=== PATIENT | female | born 1935 | race Two or more races ===

== ENCOUNTER 2016-12-11 13:39 | Inpatient (IN) | payer MEDICARE, OTHER ==
[~2016-12-11] VITALS: Ht 157.5 cm; Wt 46.1 kg
[~2016-12-11 13:39] MED LIST: ACET325T9 PO; ASPI-630 PO; CARV3.122 PO; CEFP100T PO; CEPH-264 PO; CIPR500T94 PO; CRAN1CAP12 PO; CYAN10005 PO; DIAZ10TA4 PO; FERR325T58 PO; FURO-69 PO; GABA-585 PO; GABA-586 PO; HYDR-971 PO; LIDO35.4 TP; LISI-338 PO; MIRA25TA PO; MUPI15CR TP; NITR0.4T22 SL; OXYC10TA PO; OXYC15TA PO; PHEN100T82 PO; SENN-79 PO; SIMV40TA3 PO; SULF1TAB24 PO
[2016-12-11 14:13] VITALS: BP 110/60
[2016-12-11] MEDS ORDERED: FENT1PAT21 TP (14:18)
[2016-12-11] MEDS ORDERED: ALPR1TAB6 PO (14:21)
[2016-12-11] MEDS ORDERED: POTA20TA4 PO (14:23)
[2016-12-11 14:24] VITALS: BP 110/60
[2016-12-11] MEDS ORDERED: GABA600T2 PO (14:24)
[2016-12-11] MEDS ORDERED: ACET500T68 PO (14:28)
[2016-12-11] MEDS ORDERED: DOCU100C28 PO (14:30)
[2016-12-11] MEDS ORDERED: MAGN2400 PO (14:31)
[2016-12-11] MEDS ORDERED: NITR0.4T SL (14:32)
[2016-12-11] MEDS ORDERED: POLY17PO5 PO (14:32)
[2016-12-11] MEDS ORDERED: KETO200C TOP (14:33)
[2016-12-11] MEDS ORDERED: NITROGLYCERIN SUBLINGUAL 0.4 MG BOTTLE OF 25. SL PRN (14:45)
[2016-12-11] MEDS ORDERED: POLYETHYLENE GLYCOL 3350 17 GM PACKET. PO PRN (14:45)
[2016-12-11] MEDS ORDERED: DOCUSATE SODIUM 100 MG CAPSULE PO PRN (14:45)
[2016-12-11] MEDS ORDERED: ACETAMINOPHEN 500 MG TABLET PO PRN (15:00)
[2016-12-11] MEDS ORDERED: MAGNESIUM HYDROXIDE 2,400 MG/30 ML ORAL.SUSP. PO PRN (15:30)
[2016-12-11] MEDS ORDERED: LIDOCAINE 4% PO PRN (15:30)
--- NOTE | 2016-12-11 15:30 | HP ---
ADMIT DATE: 12/11/2016 REASON FOR ADMISSION: To Respite is to give family a break Hospice. HISTORY OF PRESENT ILLNESS: This is an 81-year-old female who is on hospice for metastatic colon cancer. She has been Hospice and is here for 5 days Respite. ALLERGIES: PENICILLIN, AMOXICILLIN. MEDICATIONS: She brought her meds with her and they have been reviewed. Please see MAR. PAST MEDICAL HISTORY: Coronary artery disease, hypertension, spinal cord aneurysm repair, paraparesis, chronic urinary incontinence, chronic indwelling Turner catheter, and frequent UTIs. PAST SURGICAL HISTORY: Laminectomy. SOCIAL HISTORY: She lives with her daughter and is being care for by her daughter. OBJECTIVE: VITAL SIGNS: Blood pressure 110/60, pulse 77, respirations 16, temperature 98, pulse 97 on room air. Height 62 inches, weight 104.38 pounds. GENERAL: Frail elderly female in no acute distress. HEENT: TMs are partially occluded by wax, otherwise normal. Her eyes are clear. Nose patent. Throat clear. NECK: Supple. LUNGS: Clear to auscultation. CARDIOVASCULAR: Regular rhythm and rate. ABDOMEN: Soft, a little bit distended, nontender. EXTREMITIES: Without edema. ASSESSMENT: Metastatic colon cancer Respite care. PLAN: As per Hospice. LOVLEY WHITE DO DR: AMIE/yin JOB#: [id number] / [id number]
[2016-12-11] MEDS: OXYCODONE HCL 20 MG PO PRN (15:55)
[2016-12-11] MEDS: GABAPENTIN 600 MG PO SCH ×2 (15:55→19:58)
[2016-12-11] MEDS ORDERED: CARVEDILOL 3.125 MG PO SCH (17:00)
[2016-12-11 19:20] VITALS: BP 104/59
[2016-12-11] MEDS: KETOPROFEN TOP SCH (19:58)
[2016-12-11] MEDS: ALPRAZOLAM 1 MG PO PRN (19:59)
--- NOTE | 2016-12-12 00:58 | ACF ---
Admission Criteria Forms MEDICAL ONCOLOGY GRG Clinical Indications for Admission to Inpatient Care (Place ' X' for any and all applicable criteria): Hospital admission is needed for appropriate care of the patient because of ANY ONE of the following(1)(2)(3)(4)(5)(6)(7)(8)(9): [] I. Chemotherapy or other treatments with expected profound toxicity, prolonged marrow suppression, and inpatient support needed (eg, acute leukemia, advanced lymphoma)A [] II. Allogeneic bone marrow or peripheral blood stem cell transplantation needed for ANY ONE of the following: [] a) Hodgkin lymphoma and ANY ONE of the following(8)(9): [] i) Relapse from primary treatment in less than 12 months [] ii) Refractory to primary treatment [] iii) Relapse after autologous transplant [] iv) Multiple relapses [] b) Non-Hodgkin lymphoma and ALL of the following(10)(11) [] i) Recurrent disease [] ii) Age younger than 50 years [] iii) HLA-identical sibling donor available [] c) Acute myelogenous leukemia and ALL of the following(12)(13)(14): [] i) Appropriate clinical situation, as indicated by ANY ONE of the following: [] 1) After first complete remission for ANY ONE of the following B(15): [] A. Intermediate-risk patient, based upon cytogenetics, WBC count, and proportion of bone marrow blasts [] B. High-risk patient, based upon cytogenetics, WBC count , and proportion of bone marrow blasts [] 2) After failure to achieve complete remission following 2 induction courses with high-dose cytosine arabinoside [] 3) After first relapse or second complete remission [] 4) Patient with refractory disease (greater than 4% marrow blasts at time of transplant) [] 5) Acute promyelocytic leukemia patients unable to achieve molecular remission(14) [] ii) Age 60 years or younger [] iii) Appropriate donor genetic match [] d) Chronic myelogenous leukemia, imatinib resistant(16)(17) [] e) Acute lymphocytic or lymphoblastic leukemia and ANY ONE of the following (18)(19): [] i) Primary refractory disease (ie, failure to achieve first complete remission) and matched sibling donor available [] ii) First complete remission and ALL of the following: [] 1) Appropriate donor genetic match [] 2) High-risk prognostic factor, as indicated by ANY ONE of the following: [] A. WBC count at time of diagnosis greater than 30,000/mm3 (30 x109/L) [] B. More than 4 weeks needed to induce remission [] C. Poor-risk cytogenetic abnormalities present [] D. Age older than 35 years [] iii) Second complete remission and ANY ONE of the following: [] 1) Adult patient who relapses after primary chemotherapy [] 2) Child who relapses and ANY ONE of the following: [] A. HLA-matched family donor during first year after diagnosis [] B. Matched unrelated donor during first year after diagnosis [] C. Matched sibling donor 1 to 4 years after diagnosis [] f) Chronic lymphocytic leukemia and ALL of the following(20)(21): [] i) Age 70 years or younger [] ii) Appropriate clinical situation, as indicated by ANY ONE of the following: [] 1) Patient failed to respond to purine analogue combination therapy. [] 2) Patient relapsed from purine analogue combination therapy. [] 3) Patient has poor prognosis based on high-risk cytogenetics. [] g) Waldenstrom macroglobulinemia and ALL of the following(24)(25): [] i) Recurrent disease after first-line chemotherapy (eg, rituximab ) [] ii) Appropriate donor genetic match [] iii) Treatment given as part of clinical trial [] h) Multiple myeloma, and HLA-matched donor available(22)(23) [] i) Aplastic anemia and ALL of the following(26)(27): [] i) Acquired severe aplastic anemia, as indicated by ALL of the following: [] 1) Marrow cellularity below 25% [] 2) Severely abnormal cell counts, as indicated by 2 or MORE of the following: [] A. Absolute neutrophil count less than 500/mm3 (0.5 x109/L ) [] B. Absolute reticulocyte count less than 20,000/mm3 (20 x109/L) [] C. Platelet count less than 20,000/mm3 (20 x109/L) [] ii) Clinical situation includes ANY ONE of the following: [] 1) First-line therapy and ANY ONE of the following: [] A. Any age with syngeneic donor (eg, identical twin) available [] B. Age 55 years or younger with matched sibling donor [] C. Age 21 years or younger with available molecularly matched (allele-level) unrelated donor [] 2) Second-line therapy and ALL of the following: [] A. Failed first-line immunosuppressive therapy [] B. Available unrelated donor with HLA-matching facilitated by DNA-based typing [] j) Myelodysplastic syndrome and ANY ONE of the following(12)(18)(29) : [] i) Hypocellular marrow and ANY ONE of the following: [] 1) Matched related donor available [] 2) No matched related donor available, and ALL of the following : [] A. Matched unrelated donor available [] B. Appropriate clinical situation, as indicated by ANY ONE of the following: [] a. No history of chemotherapy [] b. No complete remission after chemotherapy [] ii) Myelodysplastic syndrome with marrow blasts 10% or greater and ANY ONE of the following: [] 1) Matched sibling donor available, and patient has achieved complete or partial remission after chemotherapy [] 2) No matched sibling donor available and ALL of the following : [] A. Matched unrelated donor available [] B. No complete remission after chemotherapy [] k) Myeloid sarcoma and ANY ONE of the following(30): [] i)HLA-matched related donor [] ii)Matched unrelated donor [] l) Severe combined immune deficiency(31)(32) [] m) Sickle cell disease and ALL of the following(33)(34)(35): [] i)HLA-identical sibling [] ii)Age younger than 16 years [] n) Genetic disease and ALL of the following(34)(36): [] i)Appropriate donor genetic match [] ii)Appropriate clinical condition, including ANY ONE of the following: [] 1) Class I or II beta thalassemia major(37) [] 2) Krabbe disease [] 3) Blackfan-Dayna anemia [] 4) Wiskott-[place] syndrome [] 5) Fanconi anemia(38) [] 6) Paroxysmal nocturnal hemoglobinuria [] 7) Hurler syndrome(39) [] o) Familial hemophagocytic lymphohistiocytosis(40)(41) [] p) Langerhans cell histiocytosis refractory to chemotherapy D(40) [] q) Autologous bone marrow or peripheral blood stem cell transplant needed for ANY ONE of the following [E]: [] r) Hodgkin lymphoma and ANY ONE of the following (8)(9)(45): [] i)First relapse in chemosensitive disease [] ii)Partial remission after radiotherapy for isolated lesions []iii)Primary refractory disease [] s) Non-Hodgkin lymphoma and ALL of the following(10)(11)(46): [] i)Chemosensitive tumor [] ii)Appropriate clinical situation, as indicated by ANY ONE of the following: [] 1) At time of diagnosis (eg, mantle cell lymphoma) [] 2) Following induction therapy (eg, T-cell lymphoma)(48) [] 3) First complete remission (eg, poor-risk patients with diffuse large B-cell lymphoma) [] 4) Refractory disease (eg, diffuse large B-cell lymphoma) [] 5) Relapse and second or greater complete remission [] t) Acute myelogenous leukemia and ALL of the following(11)(14): [] i)Age 60 years or younger [] ii)Appropriate leukemia cell type, as indicated by ANY ONE of the following: [] 1) Acute myelocytic leukemia [] 2) Acute promyelocytic leukemia [] iii)Appropriate clinical situation, as indicated by ANY ONE of the following: [] 1) Second complete remission [] 2) As part of clinical trial after first complete remission [] iv) HLA-compatible donor unavailable, or allogeneic transplant not feasible due to other factors [] u) Chronic lymphocytic leukemia and ALL of the following F(21)(47): [] i) Age 65 years or younger [] ii) HLA-compatible donor unavailable, or allogeneic transplant not feasible due to other factors [] iii) Appropriate clinical situation, as indicated by ANY ONE of the following: [] 1) Relapsed disease [] 2) Complete remission [] 3) Strong partial remission [] 4) As part of clinical trial for previously untreated high- risk disease [] v) Multiple myeloma and ALL of the following(48): [] i)Active myeloma [] ii)No serious comorbidities [] iii)Tumor is chemosensitive. [] w) Myelodysplastic syndrome and ALL of the following(12): [] i)Allogeneic transplant not feasible because HLA-compatible donor unavailable or because of other factors [] ii)Complete remission achieved [] x) Germ cell tumors of testicles or ovaries and ALL of the following(50 )(51): [] i)After second relapse [] ii)Chemosensitive tumor [] iii)As part of approved clinical study or protocol [] y) Neuroblastoma and ALL of the following(52)(53): [] i)Appropriate clinical stage, as indicated by ANY ONE of the following: [] 1) Stage 4 neuroblastoma [] 2) High-risk stage 3 neuroblastoma [] ii)No disease progression after initial course of chemotherapy [] z) Hancock and soft issue sarcoma and ALL of the following(54)(55): [] i)Age 18 years or older [] ii)Appropriate clinical situation, as indicated by ANY ONE of the following: [] 1) Tumors greater than 5 cm in diameter [] 2) Extensive local or distant recurrence [] 3) Metastatic disease [] 4) Relapsed or progressive disease [] iii)Complete or partial remission following induction chemotherapy [] III.Radioactive implant treatments needing inpatient environment (eg, cervical radiation implants) G(56) [] IV.High-risk febrile neutropenia [H] as indicated by ANY ONE of the following (57): [] a) Profound neutropenia anticipated to extend for more than 7 days [] b) Hemodynamic instability [] c) Hypoxemia [] d) Tachypnea [] e) Altered mental status [] f) New onset abdominal pain [] g) New onset vomiting or diarrhea [] h) Oral or gastrointestinal mucositis that interferes with swallowing or causes severe diarrhea [] i) Pneumonia [] j) Evidence of significant focal infection (eg, cellulitis, central line or catheter infection, perirectal abscess) [] k) Leukemia or lymphoma induction therapy [] l) Bone marrow transplant patient [] m) Renal insufficiency (eg, GFR of less than 30 mL/min/1.73m2 (0.5 mL/ sec/1.73m2) [] n) Severe liver dysfunction (transaminase levels greater than 5 times normal) [] o) Platelet count less than 50,000/mm3 (50 x109/L)(58) [] p) [employer] for Supportive Care in Cancer (MASCC) Risk Index score of < 21 [J] (58) [] V.High-risk low platelet count as indicated by ANY ONE of the following(60)( 61): [] a) Severe or life-threatening bleeding (eg, intracranial, major gastrointestinal, or extensive mucosal bleeding), with any reduced platelet count [] b) Platelet count less than 20,000/mm3 (20 x109/L) with any active bleeding [] c) Platelet count less than 10,000/mm3 (10 x109/L) with minor purpura or petechiae [] d) Platelet count less than 5000/mm3 (5 x109/L) [] e) Low platelet count with hemolytic anemia [] .Severe anemia indicated by ANY ONE of the following(62)(63): [] a) Altered mental status [] b) Chest pain [] c) Exertional dyspnea [] d) Syncope [] e) Other findings suggesting inadequate perfusion [] f) Treatment with transfusion or volume replacement is ineffective at resolving ANY ONE of the following: [] i)Tachycardia for age [] ii)Orthostatic vital sign changes as indicated by ANY ONE of the following(64): [] 1) Fall in SBP of 20 mm Hg or more 1 to 3 mins after pt sits or stands from recumbent position [] 2) Fall in DBP of 10 mm Hg or more 1 to 3 mins after pt sits or stands from recumbent position [] VII.High-risk infection problems as indicated by ANY ONE of the following(1 )(2)(3)(4): [] a) Suspected sepsis [] b) Catheter-related infection requiring inpatient monitoring and testing [] c) Fever unresponsive to outpatient antibiotic therapy for 72 hours [] d) Fever with neurologic abnormalities [] e) Fever with severe skin abnormalities, including ANY ONE of the following: [] i)Rapidly progressing cellulitis [] ii)Herpes zoster or other viral skin infection that is rapidly progressing or disseminated [] iii)Opportunistic skin infections, including aspergillosis or candidiasis [] iv)Ecthyma gangrenosum L [] v)Significant chemotherapy infusion extravasation complications (eg , tissue necrosis) [] VIII.Severe thrombotic complications; examples include(66): [] a) Superior vena cava syndrome (new) [] b) Cerebral thrombosis (new) [] c) Thrombotic endocarditis or microangiopathy [] d) Leukostasis [] IX.Tumor lysis syndrome M(67) [] X.Severe electrolyte abnormalities indicated by ALL of the following(68)(69)( 70): [] a) Electrolytes and associated findings are not as expected for patient baseline or acceptable treatment effects. [] b) Severe abnormalities indicated by ANY ONE of the following: [] i)Sodium less than 130 mEq/L (mmol/L) (new) [] ii)Sodium less than 135 mEq/L (mmol/L) with ANY ONE of the following: [] 1) Uncorrectable (to near normal or chronic baseline) after trial of outpatient and emergency treatment. [] 2) Altered mental status [] 3) Seizures [] 4) Severe medical etiology requiring inpatient management (eg, heart failure, hypovolemia) [] iii)Sodium greater than 155 mEq/L (mmol/L) [] iv)Sodium greater than 150 mEq/L (mmol/L) with ANY ONE of the following: [] 1) Uncorrectable (to near normal or chronic baseline) with outpatient and emergency treatment [] 2) Altered mental status [] 3) Seizures [] 4) Severe medical etiology (eg, hypovolemia, diabetes insipidus) [] v)Potassium less than 2.5 mEq/L (mmol/L) despite outpatient and emergency treatment [] vi)Potassium less than 3 mEq/L (mmol/L) with ANY ONE of the following: [] 1) Weakness [] 2) Cardiac abnormality (eg, arrhythmia, conduction disturbance) [] 3) Cardiac ischemia [] 4) Ileus [] 5) Ongoing medical cause requiring inpatient management (eg, acute renal wasting or SIADH) [] 6) Other severe symptoms [] vii)Potassium greater than 6.5 mEq/L (mmol/L) [] viii)Potassium greater than 5 mEq/L (mmol/L) with ANY ONE of the following: [] 1) Uncorrectable (to near normal or chronic baseline) with outpatient and emergency treatment [] 2) Severe ECG findings N [] 3) Acute worsening of renal failure (creatinine greater than 2.5 mg/dL (221 micromoles/L) or significant elevation for age and size) [] 4) Severe weakness [] 5) Severe medical etiology (eg, hemolysis, infection, drug overdose) [] ix)Calcium less than 7 mg/dL (1.75 mmol/L) despite outpatient and emergency treatment(77) [] x)Calcium less than 8 mg/dL (2 mmol/L) with significant symptoms or findings; examples include: [] 1) Altered mental status [] 2) Muscle spasms [] 3) Seizures [] 4) Breathing difficulty [] 5) Cardiac abnormality (eg, arrhythmia or conduction disturbance) [] xi)Calcium greater than 14 mg/dL (3.5 mmol/L)(72) [] xii)Calcium greater than 12 mg/dL (3 mmol/L) with ANY ONE of the following(72): [] 1) Uncorrectable (to near normal or chronic baseline) with outpatient and emergency treatment [] 2) Significant dehydration or hypovolemia as indicated by ALL of the following(70)(73)(74): [] A. Not resolved with initial treatments [] B. Clinically significant dehydration as indicated by ANY ONE of the following: [] a. Vomiting refractory to outpatient treatment (ie, precluding oral rehydration) [] b. Inability to drink [] c. Hypernatremia or other electrolyte abnormality unable to be corrected with outpatient and emergency treatment [] d. Failure to remain hydrated with outpatient therapy [] e. Reduced urine output [] f. Hypotension [] g. Serious cause for dehydration requiring acute hospitalization (eg, bowel obstruction, increased intracranial pressure, infectious cause) [] h. Child with ANY ONE of the following(75): [] Severe abdominal tenderness [] Adequate care not available at home [] Severe dehydration (greater than 9% loss of body weight) [] 3) Significant symptoms or findings; examples include: [] A. Altered mental status [] B. Cardiac abnormality (eg, arrhythmia, conduction disturbance) [] C. Malignant etiology requiring inpatient treatment [] xiii)Phosphorus less than 1 mg/dL (0.32 mmol/L) [] xiv)Phosphorus less than 1.5 mg/dL (0.48 mmol/L) with ANY ONE of the following: [] 1) Patient unresponsive to outpatient and emergency treatment [] 2) Significant symptoms or findings; examples include: [] A. Weakness [] B. Altered mental status [] C. Breathing difficulty [] D. Seizures [] E. Rhabdomyolysis [] xv)Phosphorus greater than 10 mg/dL (3.2 mmol/L) [] xvi)Phosphorus greater than 4.5 mg/dL (1.45 mmol/L) (new) with ANY ONE of the following: [] 1) Severe medical etiology (eg, crush injury, acute renal failure) [] 2) Associated hypocalcemia with significant findings; examples include: [] A. Neurologic symptoms [] B. Altered mental status [] C. Muscle spasms [] D. Seizures [] E. Breathing difficulty [] F. Cardiac abnormality (eg, arrhythmia, conduction disturbance) [] xvii)Magnesium less than 1 mg/dL (0.41 mmol/L) []xviii)Magnesium less than 1.5 mg/dL (0.62 mmol/L) with ANY ONE of the following: [] 1) Patient unresponsive to outpatient and emergency treatment [] 2) Associated hypocalcemia with significant findings; examples include: [] A. Altered mental status [] B. Muscle spasms [] C. Seizures [] D. Breathing difficulty [] E. Cardiac abnormality (eg, arrhythmia, conduction disturbance) [] 3) Associated hypokalemia (potassium less than 3 mEq/L (mmol/L) ) with risk of arrhythmia [] xix)Magnesium greater than 4 mEq/L (2 mmol/L) [] xx)Magnesium greater than 2.5 mEq/L (1.25 mmol/L) with significant symptoms or findings;examples include: [] 1) Weakness [] 2) Altered mental status [] 3) Cardiac abnormality (eg, arrhythmia, conduction disturbance) [] 4) Breathing difficulty [] 5) Severe medical etiology (eg, renal failure, hypovolemia) [] xxi)Uric acid greater than 20 mg/dL (1190 micromoles/L)(4) [] xxii)Uric acid greater than 8 mg/dL (476 micromoles/L) with significant symptoms or findings of tumor lysis syndrome; examples include(4): [] 1) Creatinine greater than 1.5 times upper limit of normal [] 2) Cardiac abnormality (eg, arrhythmia, conduction disturbance) [] 3) Seizure [] XI.Conditions causing hyperviscosity syndrome (eg, leukemia, myeloma) with high risk indicators, including ANY ONE of the following(76)(77): [] a) Hematocrit greater than 60% (0.60) [] b) Elevated platelet count associated with thrombosis, bleeding, or life-threatening organ dysfunction [] c) Severe signs or symptoms from elevated red cell, white cell, or protein level, including ANY ONE of the following: [] i)Mental status change [] ii)Dyspnea [] iii)Chest x-ray infiltrate [] iv)Visual changes [] v)Retinal abnormalities [] vi)Neuromuscular symptoms [] vii)Suspected ischemia or thrombosis []viii)Bleeding [] XII.Severe gastrointestinal complications as indicated by ANY ONE of the following(78): [] a) Severe mucositis requiring continuous IV fluids (or parenteral nutrition) and IV narcotics(79) [] b) Nausea, vomiting, or diarrhea that is uncontrollable at any other level of care(80) [] c) Severe oral candidiasis that requires inpatient management [] d) Severe gastrointestinal bleeding [] e) Significant abdominal pain with suspicion of colitis (eg, neutropenic enterocolitis, Clostridium difficile associated diarrhea) [] XIII. Severe pain requiring acute inpatient management as indicated by ALL of the following(81)(82)(83): [] a) Continuous or frequent (eg, every 2 to 4 hours) parenteral analgesics required [] b) Rapid improvement expected from tx or acute intervention (eg, surgery, anesthesia procedure) P [] XIV. Pathologic fracture with major instability (spinal, pelvis, hip, or femur fracture)(85)(86) [] XV. Severe neurologic findings as indicated by ANY ONE of the following : [] a) Intracranial hypertension (eg, papilledema, CT scan findings)(106 ) [] b) Altered mental status (new) [] c) Spinal cord compression (new or progressing)(85)(86) [] d) Seizures (new or uncontrolled) [] e) Acute neurologic deficits [] XVI. Severe allergic or cardiopulmonary toxicity from treatment (Use relevant Optimal Recovery Guideline or General Recovery Care Criteria as appropriate) [] XVII. Severe malignant effusions as indicated by ANY ONE of the following : [] a) Recurrent malignant pleural effusion requiring chest tube drainage and pleural space treatment Q(87)(88) [] b) Malignant ascites with severe symptoms, including ANY ONE of the following: [] i) Respiratory compromise [] ii) Abdominal pain or discomfort [] iii) Uncontrollable nausea and vomiting [] iv) Fever [] c) Pericardial effusion causing hemodynamic instability(89) [] XVIII. Severe tumor-related complications; examples include: [] a) Bronchial obstruction problems, such as postobstructive pneumonia or respiratory distress (not responsive to outpatient management) [] b) Acute tracheoesophageal fistula [] c) Airway or pharyngeal obstruction not treatable with outpatient procedure or management [] d) Acute intestinal obstruction [] e) Urinary obstruction not treatable with outpatient procedure or management [] f) Vascular obstruction not treatable with outpatient procedure or management [] XIX. Inpatient palliative care needed. R(90)(91)(92) ( Use Inpatient Palliative Care Criteria) [X] XX. Medical Oncology problem and ALL of the following: [X] a) Symptom or finding for which emergency and observation care have failed or are not considered appropriate (Use General Criteria: Observation Care Criteria as appropriate) [X] b) Presence of ANY ONE of the following: [X] i) A General Admission Criteria [] ii) A Pediatric General Admission Criteria The original [facility] [employer] content created by [facility] has been revised. The portions of the content which have been revised are identified through the use of italic text or in bold, and [facility] has neither reviewed nor approved the modified material. All other unmodified content is copyright [facility] [employer]. Please see references footnoted in the original [facility] edition 2016 Admission Criteria Met?: Yes ERICKA JO Dec 12, 2016 00:58
[2016-12-12 05:08] VITALS: BP 103/61
[2016-12-12] MEDS: ASPIRIN 81 MG PO SCH (08:00)
[2016-12-12] MEDS: CARVEDILOL 3.125 MG PO SCH (08:00)
[2016-12-12] MEDS: [UNRECOGNIZED DRUG - OTHER] PO SCH (08:00)
[2016-12-12] MEDS: POTASSIUM CHLORIDE 20MEQ TAB PO SCH (09:00)
[2016-12-12] MEDS ORDERED: SENNOSIDES 8.6 MG TABLET PO SCH (09:00)
[2016-12-12] MEDS: SENNA PLUS PO SCH (09:00)
[2016-12-12] MEDS: MYRBETRIQ 25 MG PO SCH (09:00)
[2016-12-12] MEDS: GABAPENTIN 600 MG PO SCH ×5 (09:00→21:00)
[2016-12-12] MEDS: FUROSEMIDE 40MG TABLET PO SCH (09:38)
[2016-12-12] MEDS: KETOPROFEN TOP SCH ×3 (09:42→21:00)
[2016-12-12 10:53] VITALS: BP 102/52
[2016-12-12] MEDS: OXYCODONE HCL 20 MG PO PRN ×2 (11:15→17:43)
[2016-12-12 18:33] VITALS: BP 119/64
[2016-12-13] MEDS: ASPIRIN 81 MG PO SCH ×2 (08:00→09:19)
[2016-12-13] MEDS: [UNRECOGNIZED DRUG - OTHER] PO SCH ×2 (08:00→09:19)
[2016-12-13] MEDS: CARVEDILOL 3.125 MG PO SCH (08:00)
[2016-12-13] MEDS: MYRBETRIQ 25 MG PO SCH (09:00)
[2016-12-13] MEDS: GABAPENTIN 600 MG PO SCH ×5 (09:00→20:01)
[2016-12-13] MEDS: SENNA PLUS PO SCH (09:00)
[2016-12-13] MEDS: FUROSEMIDE 40MG TABLET PO SCH ×2 (09:00→09:22)
[2016-12-13] MEDS: POTASSIUM CHLORIDE 20MEQ TAB PO SCH (09:00)
[2016-12-13 09:15] VITALS: BP 131/70
[2016-12-13] MEDS: FENTANYL 25MCG/HR PATCH PO SCH (09:21)
[2016-12-13] MEDS: FENTANYL 75MCG/HR PATCH PO SCH (09:22)
[2016-12-13] MEDS: KETOPROFEN TOP SCH ×3 (09:26→20:01)
[2016-12-13] MEDS: OXYCODONE HCL 20 MG PO PRN ×2 (13:40→20:01)
[2016-12-13] MEDS: ALPRAZOLAM 1 MG PO PRN (18:55)
[2016-12-13 20:12] VITALS: BP 111/68
[2016-12-14 05:51] VITALS: BP 120/74
[2016-12-14] MEDS: POTASSIUM CHLORIDE 20MEQ TAB PO SCH (08:18)
[2016-12-14] MEDS: CARVEDILOL 3.125 MG PO SCH (08:18)
[2016-12-14] MEDS: [UNRECOGNIZED DRUG - OTHER] PO SCH (08:18)
[2016-12-14] MEDS: ASPIRIN 81 MG PO SCH (08:18)
[2016-12-14] MEDS: GABAPENTIN 600 MG PO SCH ×4 (08:18→20:34)
[2016-12-14] MEDS: SENNA PLUS PO SCH (08:18)
[2016-12-14] MEDS: KETOPROFEN TOP SCH ×3 (08:19→20:34)
[2016-12-14] MEDS: FUROSEMIDE 40MG TABLET PO SCH (08:19)
[2016-12-14] MEDS: MYRBETRIQ 25 MG PO SCH (08:19)
[2016-12-14] MEDS: OXYCODONE HCL 20 MG PO PRN ×2 (08:21→16:35)
[2016-12-14] MEDS: ALPRAZOLAM 1 MG PO PRN (08:25)
[2016-12-14 10:29] VITALS: BP 94/51
[2016-12-14 19:40] VITALS: BP 100/52
[2016-12-14] MEDS: ACETAMINOPHEN 500 MG TABLET PO PRN (20:34)
[2016-12-15 05:35] VITALS: BP 109/61
[2016-12-15] MEDS: GABAPENTIN 600 MG PO SCH ×4 (07:48→20:01)
[2016-12-15] MEDS: CARVEDILOL 3.125 MG PO SCH (07:48)
[2016-12-15] MEDS: FUROSEMIDE 40MG TABLET PO SCH (07:48)
[2016-12-15] MEDS: MYRBETRIQ 25 MG PO SCH (07:48)
[2016-12-15] MEDS: KETOPROFEN TOP SCH ×3 (07:49→20:01)
[2016-12-15] MEDS: SENNA PLUS PO SCH (07:49)
[2016-12-15] MEDS: OXYCODONE HCL 20 MG PO PRN ×2 (07:49→16:36)
[2016-12-15] MEDS: ASPIRIN 81 MG PO SCH (07:49)
[2016-12-15] MEDS: [UNRECOGNIZED DRUG - OTHER] PO SCH (07:49)
[2016-12-15] MEDS: POTASSIUM CHLORIDE 20MEQ TAB PO SCH (07:49)
[2016-12-15 10:14] VITALS: BP 119/72
[2016-12-15 18:36] VITALS: BP 103/56
[2016-12-15] MEDS: ACETAMINOPHEN 500 MG TABLET PO PRN (20:02)
[2016-12-16 05:50] VITALS: BP 111/46
[2016-12-16] MEDS: FUROSEMIDE 40MG TABLET PO SCH (07:57)
[2016-12-16] MEDS: ASPIRIN 81 MG PO SCH (07:57)
[2016-12-16] MEDS: OXYCODONE HCL 20 MG PO PRN (07:57)
[2016-12-16] MEDS: GABAPENTIN 600 MG PO SCH (07:57)
[2016-12-16] MEDS: KETOPROFEN TOP SCH (07:57)
[2016-12-16] MEDS: [UNRECOGNIZED DRUG - OTHER] PO SCH (07:57)
[2016-12-16] MEDS: CARVEDILOL 3.125 MG PO SCH (07:58)
[2016-12-16] MEDS: POTASSIUM CHLORIDE 20MEQ TAB PO SCH (07:58)
[2016-12-16] MEDS: MYRBETRIQ 25 MG PO SCH (07:58)
[2016-12-16] MEDS: SENNA PLUS PO SCH (07:58)
[2016-12-16] MEDS: FENTANYL 25MCG/HR PATCH PO SCH (07:59)
[2016-12-16] MEDS: FENTANYL 75MCG/HR PATCH PO SCH (08:00)
[2016-12-16 10:50] VITALS: BP 107/65
== END 2016-12-16 13:22 | disposition hospice, home (50) | DRG 376 ==
LOC: 1 SOUTH 13:40
PROVIDERS: ADMIT Family Medicine; ATTEND Family Medicine
DX: C18.9 Malignant neoplasm of colon, unspecified (principal); I10 Essential (primary) hypertension; I25.10 Atherosclerotic heart disease of native coronary artery without angina pectoris; R32 Unspecified urinary incontinence; Z87.440 Personal history of urinary (tract) infections; Z75.5 Holiday relief care; Z88.0 Allergy status to penicillin
CPT/HCPCS: Q5005

== ENCOUNTER 2017-03-09 14:13 | Emergency (ER) | payer MEDICARE ==
[~2017-03-09 14:13] MED LIST changes: +ACET500T68 PO; +ALPR1TAB6 PO; +DOCU100C28 PO; +FENT1PAT21 TP; +GABA600T2 PO; +KETO200C TOP; +MAGN2400 PO; +NITR0.4T SL; +POLY17PO5 PO; +POTA20TA4 PO
[2017-03-09] MEDS ORDERED: IV NORMAL SALINE 1,000ML 1,000 ML IV SCH (14:26)
--- NOTE | 2017-03-09 16:52 | PHYS DOC ---
General Chief Complaint: ABDOMINAL PAIN Stated Complaint: ABDOMINAL PAIN Time Seen by MD: 14:26 Source: patient, family, RN/MD (hospice nurse), EMS, old records Exam Limitations: clinical condition Problems: History of Present Illness Initial Comments Patient is an 81-year-old female with metastatic colon cancer on hospice to the ED via EMS with a report of possible dehydration and bowel obstruction. Patient's daughter states that the patient has been diagnosed with terminal colon cancer. She is on hospice and the patient daughter states that she thinks her mom may have a bowel obstruction and may be dehydrated. She says her mom is been refusing to eat and drink and hasn't had a bowel movement. When awake she' s been complaining of worsening pain and today the daughter states that she felt like she should bring her mom here for some IV hydration. The daughter did call her hospice nurse and she is reportedly in route. An IV is established and a liter of normal saline initiated and the daughter agrees to wait for hospice nurse to arrive for further evaluation and treatment. The patient is sedated but agreeable. Timing/Duration: constant Severity: moderate Modifying Factors: worse with eating, worse with movement, improves with rest Associated Symptoms: other Allergies: Coded Allergies: Penicillins (Verified Allergy, Intermediate, 12/14/16) amoxicillin (Verified Adverse Reaction, Intermediate, 09/13/15) Past Medical History Medical History: other (metastatic colon cancer, coronary artery disease, hypertension, incontinence) Surgical History: other (AAA repair, laminectomy) Social History Smoker: non-smoker Alcohol: none Drugs: none Review of Systems Constitutional: denies chills, denies fever Respiratory: denies cough, denies shortness of breath Cardiovascular: denies chest pain, denies palpitations Gastrointestinal: abdominal pain, nausea Musculoskeletal: back pain, denies muscle pain Psychiatric/Neurological: denies headache, denies seizure Physical Exam General Appearance: no apparent distress, thin Ear, Nose, Throat: normal ENT inspection, normal pharynx (very dry mucous membranes) Neck: non-tender, supple Respiratory: normal breath sounds, no respiratory distress Cardiovascular: normal peripheral pulses, regular rate, rhythm Gastrointestinal: soft (nondistended bowel sounds diminished) Back: no CVA tenderness, no vertebral tenderness Extremities: no pedal edema, no calf tenderness Skin: pallor (with poor turgor) Orders, Labs, Meds The patient daughter in hospice nurse had an extended conversation upon hospice nurses arrival. I did join him for a time and end-of-life discussion, hospice status, and pain control discussed at length with the patient's daughter. Patient's daughter now realizes that sufficient pain control may render her mom sedated most of the time. Not eating and dehydration is part of the end-of-life hospice care and this was explained to her at length by the hospice nurse. They were able to come up with a discharge plan including no further emergency department treatment, transfer home, and increased Dilaudid by mouth. Departure Time of Disposition: 16:51 Disposition: 01 HOME, SELF-CARE Diagnosis: metastatic colon cancer, hospice status Condition: STABLE Patient Instructions: Hospice Care Additional Instructions: Continue hospice care with medications and home care plan as discussed with your hospice nurse reena. Follow-up closely with your hospice nurse, called her first with any issues. Return to ED as needed. SERGIO FAUST DO Mar 09, 2017 16:52
[2017-03-10 14:13] VITALS: BP 130/68
== END 2017-03-09 17:42 | disposition home or self-care (01) ==
LOC: ER 14:13
DX: Z51.5 Encounter for palliative care (principal); C18.9 Malignant neoplasm of colon, unspecified; I25.10 Atherosclerotic heart disease of native coronary artery without angina pectoris; I10 Essential (primary) hypertension; Z86.79 Personal history of other diseases of the circulatory system; Z88.0 Allergy status to penicillin; Z88.1 Allergy status to other antibiotic agents
CPT/HCPCS: 96360; 96361; 99285-25; J7030